=== PATIENT | female | born 1975 | race Caucasian/White ===

== ENCOUNTER 2016-09-02 13:57 | Emergency (ER) | payer OTHER ==
[~2016-09-02] VITALS: Ht 170.2 cm; Wt 72.6 kg
--- NOTE | 2016-09-02 14:10 | NUR ---
PT CAME IN FOR LEFT SIDED CHEST PAIN RADIATING TO LEFT ARM SINCE 0900. PT AAOX3. SKIN WNL. VSSanta. AT FOR EVAL. SAFETY AND COMFORT MEASURES PROVIDED. WILL MONITOR.
[2016-09-02] MEDS ORDERED: ASPIRIN 325 MG TABLET ONE (14:25)
[2016-09-02] MEDS ORDERED: ASPIRIN 325 MG TABLET PO ONE (14:30)
[2016-09-02 14:38] LABS: BASOPHILS % (AUTO) 0.3 % (0.0-2.0); EOSINOPHILS # (AUTO) 0.1 /CMM (0.0-0.7); EOSINOPHILS % (AUTO) 1.5 % (0.0-6.0); HEMATOCRIT 31 % (33-45); HEMOGLOBIN 9.5 g/dL (11.5-14.8); LYMPHOCYTES # (AUTO) 1.5 /CMM (0.8-4.8); LYMPHOCYTES % (AUTO) 27.7 % (20.0-44.0); MEAN CORPUSCULAR HEMOGLOBIN 21 PG (26.0-33.0); MEAN CORPUSCULAR HGB CONC 30 g/dl (31.0-36.0); MEAN CORPUSCULAR VOLUME 69 fL (82-100); MONOCYTES # (AUTO) 0.3 /CMM (0.1-1.30); MONOCYTES % (AUTO) 5.9 % (2.0-12.0); NEUTROPHILS # (AUTO) 3.5 /CMM (1.8-8.9); NEUTROPHILS % (AUTO) 64.6 % (43.0-81.0); PLATELET COUNT (AUTO) 284 /CMM (150-450); RDW COEFFICIENT OF VARIATION 15.8 (11.5-15.0); RED BLOOD CELL COUNT(AUTO) 4.52 MIL/uL (4.0-5.2); WHITE BLOOD COUNT (AUTO) 5.4 K/uL (4.3-11.0)
[2016-09-02 14:51] LABS: CALCIUM, SERUM 8.7 mg/dL (8.5-10.1); CARBON DIOXIDE 28 mmol/L (21-32); CHLORIDE 108 mmol/L (98-107); CREATININE 0.7 mg/dL (0.6-1.3); GFR 93 mL/min (>60); GLUCOSE 101 mg/dL (74-106); POTASSIUM 4.2 mmol/L (3.5-5.1); SODIUM SERUM 142 mmol/L (136-145); UREA NITROGEN, BLOOD 10 mg/dL (7-18)
[2016-09-02 14:55] LABS: ALANINE AMINOTRANSFERASE 27 U/L (12-78); ALBUMIN 3.8 g/dL (3.4-5.0); ALKALINE PHOSPHATASE 72 U/L (46-116); ASPARTATE AMINOTRANSFERASE 15 U/L (15-37); BILIRUBIN,TOTAL 0.2 mg/dL (0.2-1.0); TOTAL PROTEIN, SERUM 7.4 g/dL (6.4-8.2)
[2016-09-02 15:02] LABS: TROPONIN I < 0.017 ng/mL (0.00-0.056)
[2016-09-02 15:08] LABS: D-DIMER 1.18 mg/L(FEU (0.17-0.50); INR 0.95 (0.87-1.13); PROTHROMBIN TIME 10.1 SECS (9.5-12.7)
[2016-09-02 15:10] LABS: BILIRUBIN,DIRECT 0.1 mg/dL (0.0-0.2)
[2016-09-02 15:21] LABS: LYMPHOCYTES % (MANUAL) 30 % (16-48); MONOCYTES % (MANUAL) 4 % (0-11.0); NEUTROPHILS % (MANUAL) 66 (42-76)
[2016-09-02 15:22] LABS: ANISOCYTOSIS 1+; PLATELET ESTIMATE ADEQUATE
[2016-09-02] MEDS ORDERED: IOHEXOL-350 100 ML VIAL IV ONE (17:09)
[2016-09-02] MEDS ORDERED: IV NS 0.9% 250 ML IV ONE (17:09)
[2016-09-02] MEDS ORDERED: CT SWABBABLE VALVE TRANS SET 1 EA INFUS.SET MC ONE (17:09)
--- NOTE | 2016-09-02 18:50 | NUR ---
DR. HARRIS AT BEDSIDE SPEAKING TO PT REGARDING RESULTS.
--- NOTE | 2016-09-02 18:55 | NUR ---
IV removed. Catheter intact and site benign. Pressure and 4x4 applied to site. No bleeding noted. Patient discharged to home in stable condition. Written and verbal after care instructions given. Patient verbalizes understanding of instruction. ambulatory with a steady gait
[2016-09-02 18:56] VITALS: BP 138/78
== END 2016-09-02 18:56 | disposition home or self-care (01) ==
LOC: ER 14:00
DX: R07.89 Other chest pain (principal); D64.9 Anemia, unspecified
CPT/HCPCS: 36415; 71010; 71275; 80048; 80076; 84484; 84703; 85025; 85378; 85730; 93005; 99285; A4606; J7050; Q9967; Z7610